=== PATIENT | female | born 1990 | race African-American/Black ===

== ENCOUNTER 2017-09-15 06:44 | Emergency (ER) | payer OTHER ==
[2017-09-15 07:29] LABS: BASOPHIL (%) 0.4 % (0-1); EOSINOPHIL (%) 2.4 % (0-5); EOSINOPHIL COUNT 0.2 K/uL (0-0.3); HEMOGLOBIN 11.2 G/DL (11.9-15.5); IMMATURE GRANULOCYTE (%) 0.3 % (0.0-0.7); LYMPHOCYTE (%) 24.4 % (15-42); LYMPHOCYTE COUNT 2.2 K/uL (1.0-2.8); MCH 26.7 PG (29.0-34.0); MCV 83.5 FL (83-99); MONOCYTE (%) 8.9 % (3-12); MONOCYTE COUNT 0.8 K/uL (0-0.8); NEUTROPHIL (%) 63.6 % (45-76); NEUTROPHIL COUNT 5.8 K/uL (1.8-6.4); PLATELET COUNT 202 K/uL (156-360); RBC DIS.WIDTH-SD 42.5 % (39-53); RED BLOOD COUNT 4.19 M/uL (3.80-5.20); WHITE BLOOD COUNT 9.1 K/uL (4.1-10.2)
[2017-09-15 07:56] LABS: QUANTITATIVE HCG < 4.0 MIU/ML
[2017-09-15] MEDS ORDERED: NORCO 5/3251 TABLET PO (08:13)
[2017-09-15] MEDS ORDERED: FLEXERIL10 MG PO (08:13)
[2017-09-15 10:05] LABS: AMYLASE 46 IU/L (1-118); CHLORIDE 108 MEQ/L (99-109); CREATININE 0.7 MG/DL (0.6-1.3); GFR ESTIMATE (CALCULATED) > 59 mL/min/; GLUCOSE 134 mg/dL (70-99); LIPASE 21 U/L (1.0-51.0); POTASSIUM 4.3 MEQ/L (3.7-5.4); SERUM ETHYL ALCOHOL < 10 mg/dL; SODIUM 137 MEQ/L (136-147); UREA NITROGEN (BUN) 17 mg/dL (9-23)
== END 2017-09-15 12:39 | disposition home or self-care (01) ==
LOC: TRA 06:44 → EME 06:44 → TRA 12:39
PROVIDERS: Emergency Medicine
DX: S39.012A Strain of muscle, fascia and tendon of lower back, initial encounter (principal); S66.911A Strain of unspecified muscle, fascia and tendon at wrist and hand level, right hand, initial encounter; S60.211A Contusion of right wrist, initial encounter; R07.89 Other chest pain; V48.0XXA Car driver injured in noncollision transport accident in nontraffic accident, initial encounter; Y92.410 Unspecified street and highway as the place of occurrence of the external cause
CPT/HCPCS: 70450; 71250; 72125; 72128; 72131; 73110; 74176; 80048; 81003; 82150; 83690; 84702; 85025; 86850; 86900; 86901; 99281; 99285; G0480; J2270